=== PATIENT | female | born 1970 | race Caucasian/White ===

== ENCOUNTER 2018-07-10 12:26 | Emergency (ER) | payer OTHER ==
[~2018-07-10] VITALS: Ht 160 cm; Wt 70.3 kg
--- NOTE | 2018-07-10 12:33 | NUR ---
Pt placed in bed 7
[2018-07-10 12:35] VITALS: BP_SYST 123
--- NOTE | 2018-07-10 12:37 | NUR ---
ER at bedside examining patient.
[2018-07-10] MEDS ORDERED: ONDANSETRON 4 MG ODT TAB PO ONE (12:45)
[2018-07-10] MEDS ORDERED: MORPHINE 4 MG/ML INJ. SYRINGE IM ONE (12:45)
--- NOTE | 2018-07-10 12:45 | NUR ---
Medication was given to pt, tolerated well
[2018-07-10 13:26] VITALS: BP_SYST 123
--- NOTE | 2018-07-10 13:26 | NUR ---
Patient given written and verbal discharge instructions and verbalizes understanding. ER MD discussed with patient the results and treatment provided. Patient in stable condition. ID arm band removed. Rx of [place] given. Patient educated on pain management and to follow up with PMD in 2-3 days. Pain Scale 0/10 Opportunity for questions provided and answered. Medication side effect fact sheet provided.
== END 2018-07-10 13:26 | disposition home or self-care (01) ==
LOC: SED 12:26
DX: G89.29 Other chronic pain (principal); M54.5 Low back pain; Z87.39 Personal history of other diseases of the musculoskeletal system and connective tissue
CPT/HCPCS: 96372; 99283; J2270; Q0162

== ENCOUNTER 2020-05-17 23:48 | Emergency (ER) | payer BC, OTHER ==
[~2020-05-17] VITALS: Ht 160 cm; Wt 68.0 kg
[2020-05-18] VITALS: BP_SYST 130
--- NOTE | 2020-05-18 | NUR ---
Patient to ER bed 6 to gown for evaluation. Side rails up. Report given to [facility].
--- NOTE | 2020-05-18 00:01 | NUR ---
PT AAO AND AMBULATORY C/O SUDDEN ONSET OF UNPROVOKED CHEST PAIN. PT REPORTS SOB AND 5/10 OF PAIN THAT IS CONSTANT.
--- NOTE | 2020-05-18 00:15 | NUR ---
IV ESTABLISHED 20G RIGHT AC, LABS DRAWN AND SENT.
--- NOTE | 2020-05-18 00:20 | NUR ---
ER Dr. WEINSTEIN at bedside examining patient.
--- NOTE | 2020-05-18 00:28 | NUR ---
HOLD ASA DOSE FOR NOW PER DR. WEINSTEIN UNTIL LABS COME BACK
[2020-05-18] MEDS ORDERED: ASPIRIN 81 MG TAB.CHEW PO ONE (00:30)
[2020-05-18 00:37] LABS: BASOPHILS # (AUTO) 0.1 K/uL (0.0-0.2); EOSINOPHILS # (AUTO) 0.2 K/uL (0.0-0.4); HEMATOCRIT 40.4 % (36-48); HEMOGLOBIN 13.7 g/dL (12.0-16.0); LYMPHOCYTES # (AUTO) 2.1 K/uL (1.0-5.5); LYMPHOCYTES % (AUTO) 28.2 % (20.5-51.5); MEAN CORPUSCULAR HEMOGLOBIN 31 pg (27-31); MEAN CORPUSCULAR HGB CONC 34 % (32-36); MEAN CORPUSCULAR VOLUME 93 fL (79.0-98.0); MONOCYTES # (AUTO) 0.5 K/uL (0.0-1.0); MONOCYTES % (AUTO) 7.2 % (1.7-9.3); NEUTROPHILS # (AUTO) 4.5 K/uL (1.8-7.7); NEUTROPHILS % (AUTO) 60.6 % (40.0-70.0); PLATELET COUNT (AUTO) 333 K/uL (130-430); RED BLOOD CELL COUNT(AUTO) 4.36 MIL/uL (4.2-6.2); WHITE BLOOD COUNT (AUTO) 7.4 K/uL (4.8-10.8)
--- NOTE | 2020-05-18 00:37 | NUR ---
PORTABLE CXR DONE AT BEDSIDE
[2020-05-18] MEDS ORDERED: NITROGLYCERIN 0.4 MG TAB.SUBL SL ONE ×2 (00:45→00:53)
--- NOTE | 2020-05-18 00:50 | NUR ---
PT REPORTS IMPROVED PAIN AFTER NTG 1/10 ON PAIN SCALE
[2020-05-18 00:54] LABS: CREATININE 0.86 mg/dL (0.55-1.30); POTASSIUM 3.8 mmol/L (3.5-5.1)
[2020-05-18 01:00] LABS: ALBUMIN 3.7 g/dL (3.4-4.8); TOTAL BILIRUBIN 0.2 mg/dL (0.0-1.0)
--- NOTE | 2020-05-18 01:15 | NUR ---
PT GIVEN ASA PER MD ORDER PER DR. WEINSTEIN, LABS ARE BACK.
--- NOTE | 2020-05-18 02:19 | NUR ---
VSS no s/s of acute distress Resting on gurney rails up
--- NOTE | 2020-05-18 03:28 | NUR ---
Pt remains in observation status pending 2nd Trop result
[2020-05-18 04:30] VITALS: BP_SYST 130
--- NOTE | 2020-05-18 04:30 | NUR ---
Patient given written and verbal discharge instructions and verbalizes understanding. ER MD discussed with patient the results and treatment provided. Patient in stable condition. ID arm band removed. IV catheter removed intact and dressing applied, no active bleeding. Patient educated on pain management and to follow up with PMD. Pain Scale 0/10 Opportunity for questions provided and answered.
== END 2020-05-18 04:30 | disposition home or self-care (01) ==
LOC: SED 23:48
DX: R07.89 Other chest pain (principal)
CPT/HCPCS: 36415; 71045; 80053; 83690-TC; 83880; 84484; 85025; 85379; 93005; 99285

== ENCOUNTER 2020-10-10 13:32 | Emergency (ER) | payer BC, SELFPAY ==
[~2020-10-10] VITALS: Ht 160 cm; Wt 68.0 kg
[2020-10-10 13:36] VITALS: BP_SYST 129
[2020-10-10] MEDS ORDERED: MECLIZINE HCL 25 MG TABLET (ANITVERT) PO ONE (14:15)
[2020-10-10] MEDS ORDERED: NACL 0.9% 1,000 ML IV ONE (14:15)
[2020-10-10] MEDS ORDERED: ONDANSETRON HCL 4 MG/2 ML VIAL IVP ONE (14:15)
[2020-10-10 14:21] LABS: BASOPHILS # (AUTO) 0.1 K/uL (0.0-0.2); BASOPHILS % (AUTO) 1.6 % (0.0-2.0); EOSINOPHILS # (AUTO) 0.1 K/uL (0.0-0.4); EOSINOPHILS % (AUTO) 3.3 % (0.0-4.0); HEMATOCRIT 39.4 % (36-48); HEMOGLOBIN 13.3 g/dL (12.0-16.0); LYMPHOCYTES # (AUTO) 1.4 K/uL (1.0-5.5); LYMPHOCYTES % (AUTO) 31.5 % (20.5-51.5); MEAN CORPUSCULAR HEMOGLOBIN 31 pg (27-31); MEAN CORPUSCULAR HGB CONC 34 % (32-36); MEAN CORPUSCULAR VOLUME 93 fL (79.0-98.0); MONOCYTES # (AUTO) 0.2 K/uL (0.0-1.0); MONOCYTES % (AUTO) 4.6 % (1.7-9.3); NEUTROPHILS # (AUTO) 2.6 K/uL (1.8-7.7); PLATELET COUNT (AUTO) 305 K/uL (130-430); RED BLOOD CELL COUNT(AUTO) 4.23 MIL/uL (4.2-6.2); RED CELL DISTRIBUTION WIDTH 13.1 % (9.0-15.0); WHITE BLOOD COUNT (AUTO) 4.4 K/uL (4.8-10.8)
[2020-10-10 14:41] LABS: ANION GAP 10 (5-15); CALCIUM 8.7 mg/dL (8.4-11.0); CHLORIDE 103 mmol/L (98-107); CREATININE 0.89 mg/dL (0.55-1.30); GLUCOSE 167 mg/dL (70-99); SODIUM SERUM 138 mmol/L (136-145); UREA NITROGEN, BLOOD 13 mg/dL (8-21)
[2020-10-10 14:44] LABS: GFR AFRICAN AMERICAN 86 mL/min (>90)
[2020-10-10 14:46] LABS: ALANINE AMINOTRANSFERASE 32 U/L (12-78); ALBUMIN 3.5 g/dL (3.4-4.8); ASPARTATE AMINOTRANSFERASE 21 U/L (10-37); TOTAL BILIRUBIN 0.2 mg/dL (0.0-1.0)
[2020-10-10 14:48] LABS: ACETAMINOPHEN < 1 ug/mL (1-30)
[2020-10-10 14:49] LABS: ALCOHOL, BLOOD < 3 mg/dL (<10)
[2020-10-10 16:08] LABS: BILIRUBIN,URINE NEGATIVE (NEGATIVE); BLOOD, URINE NEGATIVE (NEGATIVE); COLOR,URINE YELLOW (YELLOW); GLUCOSE,URINE NEGATIVE (NEGATIVE); KETONES,URINE TRACE (NEGATIVE); LEUKOCYTE ESTERASE ,URINE NEGATIVE (NEGATIVE); NITRITE, URINE NEGATIVE (NEGATIVE); PH,URINE 5.5 (5.0-8.0); PROTEIN URINE NEGATIVE (NEGATIVE); UROBILINOGEN,URINE 0.2 (0.2-1.0)
[2020-10-10 16:28] LABS: CLARITY/URINE HAZY (CLEAR)
[2020-10-10 16:37] LABS: BARBITURATE, URINE NEGATIVE (NEG <=200); BENZODIAZEPINE, URINE NEGATIVE (NEG <=150); CANNABINOID, URINE POSITIVE (NEG <=50); COCAINE, URINE NEGATIVE (NEG <=150); METHAMPHETAMINES SCREEN,URINE NEGATIVE (NEG <=500); OPIATE, URINE NEGATIVE (NEG <=100); PHENCYCLIDINE SCREEN,URINE NEGATIVE (NEG <=25); UR TRICYCLIC ANTIDEPRESSANTS NEGATIVE (NEG <=300); URINE AMPHETAMINE NEGATIVE (NEG <=500); URINE METHADONE NEGATIVE (NEG <=200); URINE OXYCODONE SCREEN NEGATIVE (NEG <=100); URINE PROPOXYPHENE SCREEN NEGATIVE (NEG <=300)
[2020-10-10 17:20] VITALS: BP_SYST 129
== END 2020-10-10 17:20 | disposition home or self-care (01) ==
LOC: SED 13:32
DX: R42 Dizziness and giddiness (principal); F41.9 Anxiety disorder, unspecified
CPT/HCPCS: 36415; 70450; 71045; 76376; 80053; 80307; 81003; 83880; 84484; 85025; 93005; 96361; 96374; 99285; G0480; G0481; G0482; J2405; J7030; J8597

== ENCOUNTER 2021-10-12 03:42 | Emergency (ER) | payer BC, SELFPAY ==
[~2021-10-12] VITALS: Ht 157.5 cm; Wt 68.0 kg
[2021-10-12 03:50] VITALS: BP_SYST 141
--- NOTE | 2021-10-12 03:52 | NUR ---
Patient to ER bed 8 to gown for evaluation. Side rails up. Report given to KESHA MARCUM.
--- NOTE | 2021-10-12 03:54 | NUR ---
DR. MUNOZ AT BEDSIDE FOR MSE
[2021-10-12] MEDS ORDERED: LORazepam 1 MG TABLET PO ONE ×2 (04:15→05:00)
[2021-10-12] MEDS ORDERED: ONDANSETRON 4 MG ODT TAB PO ONE (04:15)
--- NOTE | 2021-10-12 04:18 | NUR ---
PT C/O OF HEADACHE ALL OVER AFTER WAKING UP THIS MORNING. EMS REPORTS PT HAS HX OF ANIETY. PT COVID POS 10/05/21.
--- NOTE | 2021-10-12 05:00 | NUR ---
PT STATES MEDICATION DIDNT HELP. PT IS TEARFUL, IS AT BEDSIDE AND STATES PT HAS BEEN UNDER ALOT OF STRESS. MD NOTIFIED.
[2021-10-12] MEDS ORDERED: TRAZ-250 PO (05:58)
--- NOTE | 2021-10-12 06:32 | NUR ---
PT IS SLEEPING. WILL DC WHEN PT WHEN WAKES UP
--- NOTE | 2021-10-12 07:07 | NUR ---
Patient given written and verbal discharge instructions and verbalizes understanding. ER MD discussed with patient the results and treatment provided. Patient in stable condition. ID arm band removed. Rx of TRAZADONE given. Opportunity for questions provided and answered. Medication side effect fact sheet provided.
--- NOTE | 2021-10-12 07:14 | NUR ---
REPORT TO JOSSUE VARGAS TO DISCHARGE PT UPON ARRIVAL OF PT .
--- NOTE | 2021-10-12 07:39 | NUR ---
ED MD RE ASSESSED PATOENT AND CLEARED [facility] HOMEPatient A/OX4, AMBUALTORY, given written and verbal discharge instructions and verbalizes understanding. ER MD discussed with patient the results and treatment provided. Patient in stable condition. ID arm band removed. ACI AND Rx given. Patient educated on pain management and to follow up with PMD. Pain Scale . Opportunity for questions provided and answered. Medication side effect fact sheet provided.
[2021-10-12 07:40] VITALS: BP_SYST 100
[2021-10-12] MEDS ORDERED: NALOXONE HCL 0.4 MG/ML AMP (NARCAN) ONE (17:40)
== END 2021-10-12 07:39 | disposition home or self-care (01) ==
LOC: SED 03:42
DX: F41.9 Anxiety disorder, unspecified (principal); G47.00 Insomnia, unspecified
CPT/HCPCS: 99285; J2310; Q0162

== ENCOUNTER 2022-02-26 00:39 | Emergency (ER) | payer BC ==
[~2022-02-26] VITALS: Ht 160 cm; Wt 68.0 kg
[~2022-02-26 00:39] MED LIST: TRAZ-250 PO
[2022-02-26 01:00] VITALS: BP_SYST 97
--- NOTE | 2022-02-26 02:40 | NUR ---
PT TO BED 1. AMBULATES WITH STEADY GAIT
[2022-02-26] MEDS ORDERED: FAMOTIDINE 20 MG TABLET PO ONE (02:45)
--- NOTE | 2022-02-26 03:21 | NUR ---
IV ESTABLISHED, BLOOD DRAWN AND SENT TO LAB. PT MEDICATED PER ORDERS GIVEN. PT ON C-MONITOR, VSS. WILL CONTINUE TO MONITOR.
[2022-02-26 03:35] LABS: BASOPHILS # (AUTO) 0.1 K/uL (0.0-0.2); BASOPHILS % (AUTO) 1.3 % (0.0-2.0); EOSINOPHILS # (AUTO) 0.3 K/uL (0.0-0.4); EOSINOPHILS % (AUTO) 4.2 % (0.0-4.0); HEMATOCRIT 40.5 % (36-48); HEMOGLOBIN 13.7 g/dL (12.0-16.0); LYMPHOCYTES # (AUTO) 1.5 K/uL (1.0-5.5); LYMPHOCYTES % (AUTO) 24.4 % (20.5-51.5); MEAN CORPUSCULAR HEMOGLOBIN 31 pg (27-31); MEAN CORPUSCULAR HGB CONC 34 % (32-36); MEAN CORPUSCULAR VOLUME 92 fL (79.0-98.0); MONOCYTES # (AUTO) 0.5 K/uL (0.0-1.0); MONOCYTES % (AUTO) 8.3 % (1.7-9.3); NEUTROPHILS # (AUTO) 3.8 K/uL (1.8-7.7); NEUTROPHILS % (AUTO) 61.8 % (40.0-70.0); PLATELET COUNT (AUTO) 262 K/uL (130-430); RED BLOOD CELL COUNT(AUTO) 4.42 MIL/uL (4.2-6.2); WHITE BLOOD COUNT (AUTO) 6.2 K/uL (4.8-10.8)
[2022-02-26 03:49] LABS: CREATININE 0.8 mg/dL (0.55-1.30)
[2022-02-26 03:55] LABS: ALBUMIN 3.3 g/dL (3.4-4.8); TOTAL BILIRUBIN 0.7 mg/dL (0.0-1.0)
[2022-02-26] MEDS ORDERED: FAMO40TA71 PO (04:28)
--- NOTE | 2022-02-26 04:30 | NUR ---
PT RESTING AWAITING RESULTS. VSS. NO S/S OF DISTRESS NOTED.
[2022-02-26 04:53] VITALS: BP_SYST 126
--- NOTE | 2022-02-26 04:59 | NUR ---
DC INSTRUCTIONS GIVEN TO PT WITH FULL RETURNED VERBAL UNDERSTANDING. IV DC'D, CATHETER INTACT. SMALL PRESSURE DRESSING APPLIED. ESRIPT SENT TO PT CHOICE OF PHARMACY. PT AMBULATES TO EXIT WITH STEADY GAIT.
== END 2022-02-26 03:23 | disposition home or self-care (01) ==
LOC: SED 00:39
DX: K21.9 Gastro-esophageal reflux disease without esophagitis (principal); B95.62 Methicillin resistant Staphylococcus aureus infection as the cause of diseases classified elsewhere; Z79.899 Other long term (current) drug therapy
CPT/HCPCS: 36415; 80053; 84484; 85025; 93005; 99284

== ENCOUNTER 2024-02-06 18:13 | Emergency (ER) | payer BC ==
[~2024-02-06] VITALS: Ht 157.5 cm; Wt 72.6 kg
[~2024-02-06 18:13] MED LIST changes: +FAMO40TA71 PO
[2024-02-06 18:36] VITALS: BP_SYST 120; PULSE 91; RESP 20; TEMP 97.6; O2SAT 97
[2024-02-06] MEDS: HYDROcodone/ACETAMIN 5-325 MG TAB (NORCO/ VICODIN) PO ONE (19:13)
[2024-02-06] MEDS: KETOROLAC TROMETHAMINE 60 MG/2 ML VIAL IM ONE (19:13)
[2024-02-06] MEDS: predniSONE 20 MG TABLET PO ONE (19:14)
[2024-02-06] MEDS ORDERED: CYCL10TA24 PO (19:33)
[2024-02-06] MEDS ORDERED: IBUP-1971 PO (19:33)
[2024-02-06] MEDS ORDERED: HYDR-3917 PO (19:33)
[2024-02-06] MEDS: MORPHINE 4 MG INJ. 4 MG/ML VIAL IM ONE (20:21)
[2024-02-06 20:28] VITALS: TEMP 98.4; O2SAT 99
[2024-02-06 20:32] VITALS: BP_SYST 124; PULSE 80; RESP 20
== END 2024-02-06 20:28 | disposition home or self-care (01) ==
LOC: SED 18:13
DX: M54.2 Cervicalgia (principal); M79.7 Fibromyalgia; G89.29 Other chronic pain; K21.9 Gastro-esophageal reflux disease without esophagitis; Z79.899 Other long term (current) drug therapy; Z79.2 Long term (current) use of antibiotics
CPT/HCPCS: 99284; 96372; J7512; J1885; J2270